=== PATIENT | female | born 1975 | race Caucasian/White ===

== ENCOUNTER → 2016-12-09 | Outpatient (CLI) | payer BC | LOC: MC.RAD 13:14 | DX: Z12.31 Encounter for screening mammogram for malignant neoplasm of breast (principal) ==

== ENCOUNTER → 2018-02-15 | Outpatient (CLI) | payer BC | LOC: MC.RAD 11:00 | DX: Z12.31 Encounter for screening mammogram for malignant neoplasm of breast (principal) ==

== ENCOUNTER → 2021-09-27 | Outpatient (CLI) | payer OTHER | LOC: MC.RAD 07:11 | DX: Z12.31 Encounter for screening mammogram for malignant neoplasm of breast (principal); N63.20 Unspecified lump in the left breast, unspecified quadrant ==

== ENCOUNTER → 2021-10-04 | Outpatient (CLI) | payer OTHER | LOC: MC.RAD 08:00 | DX: N60.02 Solitary cyst of left breast (principal) ==

== ENCOUNTER → 2024-02-27 | Outpatient (CLI) | payer OTHER ==
[~2024-02-27] MED LIST: ASPERCREME1 EACH TP; ATARAX 25MG25 MG/TAB PO; BIOTIN PO; CRESTOR 10MG10 MG PO; DULCOLAX TAB5 MG PO; EPA FISH OIL1000 MG PO; K-DUR 10 MEQ T10 MEQ PO; LIDODERM 5% PATC1 EA TP; MIRALAX PA17 GM/Dose PO; MVI PO; NARCAN4 MG NS; NEURONTIN300 MG/CAP PO; PRINZIDE 12.5 M1 TA1 PO; ROBAXIN 75750 MG/TAB PO; ROBITUSSIN100 MG/5 M PO; ROXICODONE 55 MG/TAB PO; SENNA-LAX8.6 MG PO; TOPROL XL 25MG25 MG PO; TYLENOL 500MG500 MG PO; UBIQUINOL100 MG PO; WOMEN PO; ZYRTEC 10MG10 MG PO; [UNRECOGNIZED DRUG - OTHER] PO
== END ==
LOC: MC.RAD 06:59
DX: Z12.31 Encounter for screening mammogram for malignant neoplasm of breast (principal)